=== PATIENT | female | born 1965 | race Caucasian/White ===

== ENCOUNTER 2021-11-14 18:52 | Inpatient (IN) | payer MEDICAID ==
[~2021-11-14] VITALS: Ht 167.6 cm; Wt 100.0 kg
[2021-11-14] MEDS ORDERED: normal saline 1000ML IV soln IVB ONE (19:05)
--- NOTE | 2021-11-14 19:25 | NUR ---
Notified Dr. Ugarte of critical value for CO2. Patient will be placed on insulin and fluid therapy.
[2021-11-14 19:33] LABS: BASOPHILS % (AUTO) 0.4 % (0-1); EOSINOPHILS % (AUTO) 0.2 % (0-6); HEMATOCRIT 41.1 % (35.0-45.0); HEMOGLOBIN 13.5 g/dl (12.0-16.0); LYMPHOCYTES # (AUTO) 2.1 X10'3 (1.1-4.8); LYMPHOCYTES % (AUTO) 26.3 % (21-51); MEAN CORPUSCULAR HEMOGLOBIN 28.1 PG (27.0-31.0); MEAN CORPUSCULAR HGB CONC 32.8 g/dL (33.0-36.5); MEAN CORPUSCULAR VOLUME 85.7 FL (78-98); MEAN PLATELET VOLUME 7.4 FL (7.4-10.4); MONOCYTES % (AUTO) 12.7 % (2-12); NEUTROPHILS # (AUTO) 4.9 X10'3 (1.8-7.7); NEUTROPHILS % (AUTO) 60.4 % (42-75); PLATELET COUNT 381 X10'3 (140-440); RED BLOOD COUNT 4.79 X10'6 (4.20-5.60); RED CELL DISTRIBUTION WIDTH 14.2 % (11.5-14.5); WHITE BLOOD COUNT 8.2 X10'3 (4.5-11.0)
[2021-11-14 20:03] LABS: ALANINE AMINOTRANSFERASE 31 U/L (12-78); ALBUMIN/GLOBULIN RATIO 0.7 (1.1-1.5); ALKALINE PHOSPHATASE 189 IU/L (46-116); ANION GAP 18 (8-16); ASPARTATE AMINO TRANSFERASE 11 U/L (10-37); BILIRUBIN,TOTAL 0.3 MG/DL (0.1-1.0); BLOOD UREA NITROGEN 8 MG/DL (7-18); BUN/CREATININE RATIO 8.5 (6.6-38.0); CALCIUM 8.9 MG/DL (8.5-10.1); CHLORIDE 104 MMOL/L (99-107); CREATININE 0.94 MG/DL (0.40-0.90); GLUCOSE 166 MG/DL (70-104); LIPASE < 50 U/L (73-393); MAGNESIUM 1.5 MG/DL (1.5-2.4); POTASSIUM 3.8 MMOL/L (3.5-5.1); SODIUM 134 MMOL/L (135-145); TOTAL PROTEIN 7.5 G/DL (6.4-8.2); eGFR 62 ML/MIN
[2021-11-14 20:05] LABS: TOTAL CARBON DIOXIDE 12.4 MMOL/L (24-32)
[2021-11-14] MEDS ORDERED: Insulin Reg/NS 100units/100mL 100 ML IV SCH (20:20)
[2021-11-14] MEDS ORDERED: sodium phosphate inj. 15 MMOL in dextrose 5%-water 250 ML IV PRN ×2 (20:20→21:30)
[2021-11-14] MEDS ORDERED: sodium bicarbonate (8.4%) inj. 50 MEQ in dextrose 5% water 500ml 250 ML IV PRN ×2 (20:20→21:30)
[2021-11-14] MEDS ORDERED: potassium CL 20mEq in D5-1/2NS 1,000 ML IV PRN ×2 (20:20→21:30)
[2021-11-14] MEDS ORDERED: potassium Cl 40MEQ/1/2NS 520ml 520 ML IV PRN ×4 (20:20→21:30)
[2021-11-14] MEDS ORDERED: Neutra Phos packet PO PRN ×2 (20:20→21:30)
[2021-11-14] MEDS ORDERED: potassium Cl 20 mEq SR tablet PO PRN ×6 (20:20→21:30)
[2021-11-14] MEDS ORDERED: sodium bicarbonate (8.4%) inj. 100 MEQ in dextrose 5% water 500ml 500 ML IV PRN ×2 (20:20→21:30)
[2021-11-14] MEDS ORDERED: sodium phosphate inj. 30 MMOL in dextrose 5%-water 250 ML IV PRN ×2 (20:20→21:30)
[2021-11-14 21:07] LABS: ALBUMIN 2.9 G/DL (3.4-5.0); ANION GAP 13 (8-16); BLOOD UREA NITROGEN 8 MG/DL (7-18); BUN/CREATININE RATIO 8.3 (6.6-38.0); CALCIUM 8.4 MG/DL (8.5-10.1); CHLORIDE 107 MMOL/L (99-107); CREATININE 0.96 MG/DL (0.40-0.90); GLUCOSE 136 MG/DL (70-104); PHOSPHORUS 1.3 MG/DL (2.3-4.5); POTASSIUM 3.9 MMOL/L (3.5-5.1); SODIUM 135 MMOL/L (135-145); eGFR 61 ML/MIN
[2021-11-14 21:11] LABS: TOTAL CARBON DIOXIDE 14.6 MMOL/L (24-32)
[2021-11-14] MEDS ORDERED: morphine 2 MG/ML inj. syringe IV PRN ×2 (21:30)
[2021-11-14] MEDS ORDERED: insulin regular, human U-100 3ml vial - multi-dose IV PRN (21:30)
[2021-11-14] MEDS ORDERED: mag hydrox/Alum hydrox/simeth 30ml oral suspension PO PRN (21:30)
[2021-11-14] MEDS ORDERED: ondansetron 4mg rapidly disintigrating tab PO PRN (21:30)
[2021-11-14] MEDS ORDERED: magnesium 2GM in 50ml NS 50 ML IV PRN (21:30)
[2021-11-14] MEDS ORDERED: magnesium hydroxide 30ml (MOM) UD suspension PO PRN (21:30)
[2021-11-14] MEDS: normal saline 1000ml 1,000 ML IV SCH ×3 (21:30→21:43)
[2021-11-14] MEDS ORDERED: magnesium 4gm in 100ml NS 100 ML IV PRN (21:30)
[2021-11-14] MEDS ORDERED: potassium CL 10mEq/100ml bag 100 ML IV PRN (21:30)
[2021-11-14] MEDS ORDERED: ondansetron/PF 4mg/2ml inj IV PRN (21:30)
[2021-11-14] MEDS ORDERED: magnesium Cl slow-release 64mg tablet PO PRN (21:30)
[2021-11-14] MEDS ORDERED: acetaminophen 650mg rectal suppository RC PRN (21:30)
[2021-11-14 21:59] LABS: APTT 26 SECONDS (22-32)
[2021-11-14] MEDS: acetaminophen 325mg tablet PO PRN (22:13)
[2021-11-14 22:35] LABS: ALBUMIN 2.8 G/DL (3.4-5.0); ANION GAP 17 (8-16); BLOOD UREA NITROGEN 8 MG/DL (7-18); BUN/CREATININE RATIO 8.8 (6.6-38.0); CALCIUM 8.5 MG/DL (8.5-10.1); CHLORIDE 107 MMOL/L (99-107); CREATININE 0.91 MG/DL (0.40-0.90); GLUCOSE 166 MG/DL (70-104); POTASSIUM 3.6 MMOL/L (3.5-5.1); SODIUM 136 MMOL/L (135-145); eGFR 65 ML/MIN
[2021-11-14 22:43] LABS: TOTAL CARBON DIOXIDE 11.7 MMOL/L (24-32)
[2021-11-14 22:46] LABS: URINE AMPHETAMINE SCREEN NEGATIVE (Neg); URINE BARBITUATE SCREEN NEGATIVE (Neg); URINE BENZODIAZEPINES SCREEN NEGATIVE (Neg); URINE CANNABINOID SCREEN NEGATIVE (Neg); URINE COCAINE SCREEN NEGATIVE (Neg); URINE METHADONE SCREEN NEGATIVE (Neg); URINE OPIATE SCREEN NEGATIVE (Neg); URINE PHENCYCLIDINE SCREEN NEGATIVE (Neg)
[2021-11-14 23:03] LABS: CLARITY,URINE CLEAR (Clear); COLOR,URINE YELLOW (Yellow); GLUCOSE, URINE 250 mg/dl (Neg); KETONES,URINE >=80 mg/dl (Neg); LEUKOCYTE ESTERASE ,URINE NEGATIVE (Neg); NITRITES, URINE NEGATIVE (Neg); OCCULT BLOOD,URINE TRACE-INTACT (Neg); PROTEIN,URINE TRACE mg/dl (Neg); UROBILINOGEN,URINE 0.2 E.U/dL (0.2-1.0)
[2021-11-14 23:10] LABS: UA COLLECTION TYPE NON-SPECIFIED
[2021-11-14 23:14] LABS: SQUAMOUS EPITHELIAL CELL,UR FEW /LPF (FEW)
[2021-11-14 23:15] LABS: FINE GRANULAR CAST 0-3 /LPF (NEGATIVE); HYALINE CASTS 0-3 /LPF (NEGATIVE); MUCUS STRANDS FEW /LPF (Neg)
[2021-11-14 23:17] LABS: BACTERIA,URINE 1+ /HPF (Neg)
[2021-11-15 00:47] LABS: ALBUMIN 2.5 G/DL (3.4-5.0); ANION GAP 14 (8-16); BLOOD UREA NITROGEN 6 MG/DL (7-18); BUN/CREATININE RATIO 7.5 (6.6-38.0); CHLORIDE 107 MMOL/L (99-107); GLUCOSE 147 MG/DL (70-104); PHOSPHORUS 1.5 MG/DL (2.3-4.5); POTASSIUM 3.6 MMOL/L (3.5-5.1); SODIUM 136 MMOL/L (135-145); eGFR 75 ML/MIN
[2021-11-15 00:50] LABS: TOTAL CARBON DIOXIDE 14.9 MMOL/L (24-32)
[2021-11-15] MEDS: normal saline 1000ml 1,000 ML IV SCH ×5 (01:04→22:15)
--- NOTE | 2021-11-15 01:05 | NUR ---
Called Dr. Douglas about patient's BS trending below 150 and protocol dictates contacting doctor. Order given for D10 1/2NS running at 150mls.
[2021-11-15] MEDS ORDERED: Dextrose 10%-water IV solution 1,000 ML IV SCH (01:15)
--- NOTE | 2021-11-15 01:59 | NUR ---
Notified Dr. Douglas of patient's continued low CO2 values. Doctor acknowledged. No new orders at this time.
[2021-11-15 03:59] LABS: ALBUMIN 2.5 G/DL (3.4-5.0); ANION GAP 14 (8-16); BLOOD UREA NITROGEN 5 MG/DL (7-18); CALCIUM 8.3 MG/DL (8.5-10.1); CHLORIDE 106 MMOL/L (99-107); CREATININE 0.84 MG/DL (0.40-0.90); GLUCOSE 214 MG/DL (70-104); MAGNESIUM 1.4 MG/DL (1.5-2.4); PHOSPHORUS 1.7 MG/DL (2.3-4.5); POTASSIUM 3.8 MMOL/L (3.5-5.1); SODIUM 136 MMOL/L (135-145); TOTAL CARBON DIOXIDE 16.4 MMOL/L (24-32); eGFR 71 ML/MIN
[2021-11-15] MEDS: acetaminophen 325mg tablet PO PRN ×3 (04:48→18:31)
--- NOTE | 2021-11-15 05:19 | NUR ---
Patient's sugars now trending in the desired 150-200's range. IV solution had recently been switched back to D5 1/2 NS with 20K at 250. Patient appears comfortable.
[2021-11-15 05:34] LABS: ABG HCO3 16.2 mmol/L (22.0-26.0); ABG OXYGEN SATURATION 94.3 % (94-97); ABG PO2 (T) 70.6 mmHg (75.0-100.0); ALLEN'S TEST POSITIVE; FCOHb 0.7 % (0.0-3.9); FMetHb 0.3 % (0.0-1.5); FO2Hb 93.4 % (94-97); TOTAL HEMOGLOBIN 12.6 G/dl (12.0-16.0)
--- NOTE | 2021-11-15 05:59 | NUR ---
Patient has voided urine multiple times overnight and is producing urine well.
[2021-11-15] MEDS ORDERED: Insulin Reg/NS 100units/100mL 100 ML IV SCH (06:00)
[2021-11-15] MEDS ORDERED: K and/or MAG REPLACEMENT MC SCH ×2 (08:00)
[2021-11-15] MEDS: K and/or MAG REPLACEMENT MC SCH ×2 (08:00→20:00)
[2021-11-15] MEDS: docusate sod 100mg capsule PO SCH ×2 (08:00→20:02)
[2021-11-15] MEDS ORDERED: glucagon, human recombinant 1mg kit SUBCUT PRN (08:55)
[2021-11-15] MEDS ORDERED: MESSAGE TO PHARMACY PO ONE (08:55)
[2021-11-15] MEDS ORDERED: dextrose 50%-water 50ml dispensing syringe IV PRN ×2 (08:55)
[2021-11-15] MEDS ORDERED: dextrose ORAL solution 15 GM/59 ML bottle PO PRN ×2 (08:55)
[2021-11-15] MEDS ORDERED: potassium phosphate inj 30 MMOL in normal saline 500ml IV soln 500 ML IV ONE (09:00)
[2021-11-15] MEDS: CefTRIAXone/D5W-Rocephin 1gm 50 ML IV SCH (09:49)
--- NOTE | 2021-11-15 10:59 | NUR ---
pt bld sugar after eating food is 155.no need for bld sugar correction.
[2021-11-15 11:08] LABS: CHOL/HDL RATIO 5.4 (0.00-4.99); CHOLESTEROL 200 MG/DL (0-200); HDL CHOLESTEROL 37 MG/DL (35-60); LDL CHOLESTEROL 114 MG/DL (50-100); TRIGLYCERIDES 190 MG/DL (20-135)
[2021-11-15] MEDS: insulin Lispro (HumaLOG) vial - multi-dose SQ SCH ×3 (12:29→20:59)
[2021-11-15 13:00] VITALS: BP 154/69
--- NOTE | 2021-11-15 13:00 | NUR ---
Miss Martin has been admitted to room 3012A. Her admission documentation has been completed in the ED. She denies pain and has been made to be as comfortable as possible. She has no open pressure wounds. She does have extremly dry hands they are open in some areas. She states this related to her diabetes and eating sugars. She has informed staff that she has not had her medications for quite some time. Her blood sugar is within limits of the sliding scale coverage. she is no longer on insulin drip. She has no s/s of distress or discomfort and is resting quietly.
[2021-11-15 15:00] VITALS: BP 154/69
[2021-11-15] MEDS ORDERED: INSU100I31 SUBCUT ×2 (15:26→15:42)
[2021-11-15] MEDS ORDERED: INSU100V43 SUBCUT ×2 (15:26→15:42)
[2021-11-15] MEDS ORDERED: AMIT25TA10 PO (15:26)
[2021-11-15] MEDS ORDERED: ESOM20CA23 PO (15:26)
[2021-11-15] MEDS ORDERED: HYDR-3686 PO (15:26)
[2021-11-15] MEDS ORDERED: CLON0.1T51 PO (15:26)
[2021-11-15] MEDS ORDERED: LORA-269 PO (15:26)
[2021-11-15] MEDS ORDERED: METH-797 PO (15:26)
[2021-11-15] MEDS ORDERED: DULO-31 PO (15:26)
[2021-11-15] MEDS ORDERED: LISI10TA27 PO (15:42)
[2021-11-15] MEDS ORDERED: PANT40TA54 PO (15:42)
[2021-11-15] MEDS ORDERED: LACT1CAP26 PO (15:42)
[2021-11-15] MEDS ORDERED: CEFD300C3 PO (15:42)
[2021-11-15] MEDS: hydrOXYzine 25 MG tablet PO SCH (17:08)
[2021-11-15 18:00] VITALS: BP 173/95
[2021-11-15] MEDS ORDERED: enoxaparin 40mg/0.4ml syringe SUBCUT SCH (20:00)
[2021-11-15] MEDS: lactobacillus rhamnosus 10,000 MMU CELLS/CAPSULE PO SCH (20:01)
[2021-11-15] MEDS: cyclobenzaprine 10mg tablet PO SCH (20:02)
[2021-11-15] MEDS ORDERED: lisinopril 10 MG tablet PO ONE (20:35)
[2021-11-15] MEDS ORDERED: amitriptyline 25mg tablet PO SCH (21:00)
[2021-11-15] MEDS ORDERED: LORazepam 1 MG tablet PO SCH (21:00)
[2021-11-15] MEDS ORDERED: insulin glargine (Lantus) pen - multi-dose SQ SCH (21:00)
[2021-11-15] MEDS ORDERED: cloNIDine 0.1 mg tablet PO SCH (21:00)
[2021-11-15 22:00] VITALS: BP 144/71
[2021-11-16 02:00] VITALS: BP 93/59
[2021-11-16 06:00] VITALS: BP 112/61
[2021-11-16 06:59] LABS: MAGNESIUM 1.6 MG/DL (1.5-2.4); POTASSIUM 4.4 MMOL/L (3.5-5.1)
[2021-11-16] MEDS: insulin Lispro (HumaLOG) vial - multi-dose SQ SCH ×3 (07:26→14:55)
[2021-11-16] MEDS: normal saline 1000ml 1,000 ML IV SCH ×2 (07:28→11:35)
[2021-11-16] MEDS: lactobacillus rhamnosus 10,000 MMU CELLS/CAPSULE PO SCH (07:29)
[2021-11-16] MEDS: CefTRIAXone/D5W-Rocephin 1gm 50 ML IV SCH (07:29)
[2021-11-16] MEDS: hydrOXYzine 25 MG tablet PO SCH ×3 (07:29→15:41)
[2021-11-16] MEDS ORDERED: pantoprazole 40mg Tablet.DR PO SCH (07:30)
[2021-11-16] MEDS: cyclobenzaprine 10mg tablet PO SCH ×2 (07:31→14:55)
[2021-11-16] MEDS: docusate sod 100mg capsule PO SCH (07:34)
[2021-11-16] MEDS ORDERED: duloxetine 30mg CAPSULE.DR PO SCH ×2 (08:00)
[2021-11-16] MEDS: K and/or MAG REPLACEMENT MC SCH (08:00)
[2021-11-16] MEDS ORDERED: lisinopril 10 MG tablet PO SCH (08:00)
[2021-11-16] MEDS: acetaminophen 325mg tablet PO PRN (10:33)
[2021-11-16 11:00] VITALS: BP 148/72
[2021-11-16 11:14] LABS: ALBUMIN 2.6 G/DL (3.4-5.0); ANION GAP 9 (8-16); BLOOD UREA NITROGEN 8 MG/DL (7-18); BUN/CREATININE RATIO 11.4 (6.6-38.0); CALCIUM 8.6 MG/DL (8.5-10.1); CHLORIDE 105 MMOL/L (99-107); GLUCOSE 310 MG/DL (70-104); SODIUM 138 MMOL/L (135-145); TOTAL CARBON DIOXIDE 23.8 MMOL/L (24-32); eGFR 88 ML/MIN
--- NOTE | 2021-11-16 12:21 | NUR ---
Student documentation: I have reviewed and agree with all interventions, assessments performed and documented by Ronel Guerrero.
--- NOTE | 2021-11-16 13:05 | NUR ---
WOUND INFECTION EDUCATION PROVIDED BY WOUND CARE 1. Patient instructed to call their primary doctor, or go the ED immediately if any of the following symptoms occur: * Increased pain in wound * Increase in drainage from the wound * Redness in the skin surrounding the wound * Warmth in the skin surrounding the wound * Bleeding from the wound * Temperature of 101 or greater 2. If any of these occur while in the hospital tell a nurse immediately. DIABETIC FOOT CARE EDUCATION PROVIDED BY WOUND CARE * Wash your feet daily with lukewarm water and soap. * Dry your feet well, especially between the toes. * Keep the skin moisturized with lotion, but do not apply it between the toes. * Check your feet for blisters, cuts or sores. * Use an emery board to shape your toenails even with the ends of your toes. * Change daily into clean, soft socks or stockings, not too big or too small. * Keep your feet warm and dry. * Preferably wear special padded socks and shoes that fit well. * Never walk barefoot indoors or outdoors. * Examine your shoes everyday for cracks, carla, nails or anything that could hurt your feet. * Tell your doctor if you find any of these problems or have any concerns after examining your feet. Addendum: 11/16/21 at 1305 by Minoo Castillo RN Amended: Links added.
--- NOTE | 2021-11-16 14:51 | NUR ---
Pt transferred from [facility] d/t DKA which is now resolved per MD notes. Noted A1c 10.0%. Pt seen at bedside for written and verbal DM education. 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 Pt reports her last A1c was around 9% and states she usually checks her BG levels 4-5 times a day however has been unable to recently as she ran out of test strips r/t insurance issues. Pt also reports issues obtaining insulin r/t insurance. Both CM and SW working with patient. Pt states she usually just consumes one meal a day as she is not hungry throughout the day. RD encouraged pt to increase PO intake to assist with BG management. All of patient's questions were answered at this time. RD contact information provided and pt encouraged to reach out for further questions. Pt endorses a good appetite which is evident with documented 100% PO intake of meals. Pt reports getting full from meals. Pt denies food allergies or difficulty chewing/swallowing. Pt pending discharge at this time per EMR. Will continue to follow. Addendum: 11/16/21 at [address] Amended: Links added.
[2021-11-16 15:00] VITALS: BP 131/77
[2021-11-16] MEDS ORDERED: mineral oil/petrolatum, white cream 113gm jar TP SCH (20:00)
== END 2021-11-16 17:53 | disposition home or self-care (01) | DRG 420 ==
LOC: ER 18:53 → ED HOLD 21:35 → PCU 3S 11-15 12:55
PROVIDERS: ADMIT Family Medicine; ATTEND Family Medicine
DX: E10.10 Type 1 diabetes mellitus with ketoacidosis without coma (principal); F41.1 Generalized anxiety disorder; F43.10 Post-traumatic stress disorder, unspecified; N39.0 Urinary tract infection, site not specified; F90.9 Attention-deficit hyperactivity disorder, unspecified type; R00.0 Tachycardia, unspecified; I25.10 Atherosclerotic heart disease of native coronary artery without angina pectoris; Z59.00 Homelessness unspecified; Z86.73 Personal history of transient ischemic attack (TIA), and cerebral infarction without residual deficits; Z88.8 Allergy status to other drugs, medicaments and biological substances
CPT/HCPCS: 36415; 36600; 80048; 80053; 80061; 80305; 81001; 82803; 82948; 83036; 83690; 83735; 84100; 84132; 84145; 85018; 85025; 85610; 85730; 87081; 87088; 93005; 96365; 96368; 99291; G0378; J0696; J1650; J1815; J3480; J3490; J7030; J7040; Q0177